=== PATIENT | male | born 1945 ===

== ENCOUNTER → 2017-09-24 | Outpatient (CLI) | payer OTHER ==
[2017-09-24 08:38] LABS: BASO % 0.6 %; BASO ABS # 0.06 K/uL (0-0.2); EOS % 1.8 %; EOS ABS # 0.17 K/uL (0-0.5); HEMATOCRIT 45.8 % (42-52); HEMOGLOBIN 14.6 g/dL (14.0-18.0); IG# 0.06 K/uL (0.00-0.02); LYMPH % 23.8 %; MEAN CORPUSCULAR HEMOGLOBIN 30.9 pg (25-34); MEAN CORPUSCULAR HGB CONC 31.9 g/dl (32-36); MEAN PLATELET VOLUME 10.5 fL (7.4-10.4); MONO % 8.1 %; MONO ABS # 0.78 K/uL (0.11-0.59); NEUT % 65.1 %; NEUT ABS # 6.31 K/uL (1.4-6.5); PLATELET COUNT 316 K/uL (130-400); RED CELL DISTRIBUTION WIDTH CV 13.6 % (11.5-14.5); RED CELL DISTRIBUTION WIDTH SD 48.2 fL (36.4-46.3); WHITE BLOOD COUNT 9.68 K/uL (4.8-10.8)
[2017-09-24 08:46] LABS: ALBUMIN 3.6 gm/dl (3.4-5.0); ALT/SGPT 68 U/L (12-78); AST/SGOT 59 U/L (15-37); BLOOD UREA NITROGEN 39 mg/dl (7-18); CALCIUM 10.8 mg/dl (8.5-10.1); CARBON DIOXIDE 29 mmol/L (21-32); CREATININE 1.26 mg/dl (0.60-1.40); GLUCOSE 105 mg/dl (70-99); POTASSIUM 3.8 mmol/L (3.5-5.1); SODIUM 152 mmol/L (136-145)
[2017-09-24 08:49] LABS: ALKALINE PHOSPHATASE 105 U/L (45-117); TOTAL PROTEIN 8.5 gm/dl (6.4-8.2)
== END ==
LOC: C.LABUPNIT 08:20
PROVIDERS: ATTEND Nurse Practitioner Family
DX: G31.1 Senile degeneration of brain, not elsewhere classified (principal)